=== PATIENT | female | born 1990 | race Caucasian/White ===

== ENCOUNTER 2017-04-10 15:21 | Emergency (ER) | payer MEDICAID ==
[~2017-04-10] VITALS: Ht 165.1 cm; Wt 92.0 kg
[~2017-04-10 15:21] MED LIST: PREN29TA PO
[2017-04-10 15:29] VITALS: BP 131/68; PULSE 73; RESP 20; TEMP 98.4
[2017-04-10 15:33] VITALS: BP 131/68; PULSE 74; RESP 20; TEMP 98.4; O2SAT 100
--- NOTE | 2017-04-10 15:40 | PD ---
HPI Chief Complaint: GI Complaint Time Seen by Provider: 15:35 Travel History International Travel<30 days: No Contact w/Intl Traveler<30days: No Traveled to known affect area: No History of Present Illness HPI PATIENT C/O ABD PAIN, SEEN AT [place] [facility] AND TRANSFERRED DUE TO ULTRASOUND NEED. PATIENT IS ABOUT 6 WEEKS GESTATION AND COMES IN C/O UPPER ABD PAIN, PRESSURE, NONRAD, MOSTLY EPIG , DENIES N/V/D/VAG BLEED/....NO AGGRAVATING/ ALLEVIATING FACTORS. PFSH Past Medical History Medical History: Denies Significant Hx Diminished Hearing: No Tetanus Vaccination: Unknown Influenza Vaccination: No ?: LMP: 03/01/17 : 3 Para: 1 Miscarriage: 1 Past Surgical History Section: Yes Tonsillectomy: Yes (T&A) Social History Alcohol Use: No Tobacco Use: No Substance Use: No Allergies-Medications (Allergen,Severity, Reaction): Coded Allergies: No Known Allergies (Verified Allergy, Unknown, 04/10/17) Reported Meds & Prescriptions Reported Meds & Active Scripts Active Reported Plus Iron 29-1 mg ( Vit-Iron Carbonyl) 29 Mg Iron-1 Mg Tab 1 Tab PO DAILY Review of Systems Except as stated in HPI: all other systems reviewed are Neg General / Constitutional: No: Fever Eyes: No: Visual changes HENT: No: Headaches Cardiovascular: No: Chest Pain or Discomfort Respiratory: No: Shortness of Breath Gastrointestinal: Positive: Abdominal Pain Genitourinary: No: Dysuria Musculoskeletal: No: Pain Skin: No Rash Neurologic: No: Weakness Psychiatric: No: Depression Endocrine: No: Polydipsia Hematologic/Lymphatic: No: Easy Bruising Physical Exam Narrative GENERAL: SKIN: Warm and dry. HEAD: Atraumatic. Normocephalic. EYES: Pupils equal and round. No scleral icterus. No injection or drainage. ENT: No nasal bleeding or discharge. Mucous membranes pink and moist. NECK: Trachea midline. No JVD. CARDIOVASCULAR: Regular rate and rhythm. RESPIRATORY: No accessory muscle use. Clear to auscultation. Breath sounds equal bilaterally. GASTROINTESTINAL: Abdomen soft, non-tender, nondistended. MUSCULOSKELETAL: Extremities without clubbing, cyanosis, or edema. No obvious deformities. NEUROLOGICAL: Awake and alert. No obvious cranial nerve deficits. Motor grossly within normal limits. Five out of 5 muscle strength in the arms and legs. Normal speech. PSYCHIATRIC: Appropriate mood and affect; insight and judgment normal. Data Data Last Documented VS Vital Signs Date Time Temp Pulse Resp B/P (MAP) Pulse Ox O2 Delivery O2 Flow Rate FiO2 04/10/17 15:33 98.4 74 20 131/68 (89) 100 Room Air Orders Orders Us Abdomen Gallbladder (04/10/17 ) Us Pelvis (Ques Pr/Ect)W Trans (04/10/17 15:35) MDM Medical Decision Making Medical Screen Exam Complete: Yes Emergency Medical Condition: Yes Medical Record Reviewed: Yes Differential Diagnosis ECTOPIC V EARLY PREG V BILIARY COLIC V GALLSTONES V PANCREATITIS Narrative Course ON EVALUATION, ULTRASOUND RUQ IS NL AND PELVIC SHOWS IUP WITH FHT 92 Diagnosis Primary Impression: UTI in Qualified Codes: O23.41 - Unspecified infection of urinary tract in , first trimester Patient Instructions: General Instructions, Urinary Tract Infection in Women ( ED) Scripts Nitrofurantoin Monohydrate Macrocrystals (Macrobid) 100 Mg Capsule 100 MG PO BID for Infection, #10 CAP 0 Refills Prov: Chay Dennison MD 04/10/17 Disposition: 01 DISCHARGE HOME Condition: Stable Chay Dennison MD Apr 10, 2017 15:40
--- NOTE | 2017-04-10 16:52 | RADRPT ---
EXAM DATE/TIME: 04/10/2017 15:47 [facility] COMPARISON: No previous studies available for comparison. INDICATIONS : Right upper quadrant pain. MEDICAL HISTORY : . Right upper quadrant pain. SURGICAL HISTORY : Tonsillectomy. section. ENCOUNTER: Initial ACUITY: 1 day PAIN SCORE: 4/10 LOCATION: Right upper quadrant MEASUREMENTS: LIVER: 15.4 cm length COMMON DUCT: 4 mm RIGHT KIDNEY: 11.3 x 4.2 x 4.7 cm FINDINGS: LIVER: Normal echotexture without focal lesion or ductal dilatation. COMMON DUCT: No intraluminal mass or stone visualized. GALLBLADDER: Contains no stones, demonstrates no wall thickening or pericholecystic fluid. PANCREAS: The visualized portions are within normal limits. RIGHT KIDNEY: No evidence of hydronephrosis, stone, or mass. CONCLUSION: Normal right upper quadrant ultrasound. Georgi Tomlinson MD on April 10, 2017 at 16:50 Board Certified Radiologist. This report was verified electronically.
--- NOTE | 2017-04-10 16:57 | RADRPT ---
EXAM DATE/TIME: 04/10/2017 15:59 [facility] COMPARISON: No previous studies available for comparison. INDICATIONS : Ectopic. LAB(S): [facility] MEDICAL HISTORY : . Right upper quadrant pain. SURGICAL HISTORY : Tonsillectomy. section. ENCOUNTER: Initial ACUITY: 6 weeks PAIN SCORE: 0/10 LOCATION: Bilateral pelvis MEASUREMENTS: UTERUS: 9.7 x 6.9 x 5.5 cm ENDOMETRIAL STRIPE: 13 mm RIGHT OVARY: 2.9 x 3.0 x 2.3 cm LEFT OVARY: 1.8 x 1.4 x 1.7 cm FREE FLUID: No CROWN RUMP LENGTH: 0.4 cm = 6 WKS 1 DAYS FHR: 92 BPM FINDINGS: UTERUS: The myometrium has homogeneous echotexture without mass. There is a single intrauterine gestational sac measuring 1.6 x 1.9 1.0 cm. Yolk sac is identified. What is thought to represent the embryo measu res 0.4 cm giving estimated age of 6 weeks and one days. M-mode Doppler was utilized. Hypoechoic mate rial adjacent to the gestational sac measures 1.6 x 1.3 x 0.6 cm. RIGHT OVARY: There is likely a corpus luteal cyst in the right ovary measuring 16 mm. LEFT OVARY: Ovary contains no mass or significant cystic lesion. MISCELLANEOUS: No free fluid. CONCLUSION: 1. There is a single intrauterine with estimated age of 6 weeks and one days. heart r ate of 92 was documented. Suggest imaging followup and clinical followup, as needed to document joshua l progression of . 2. Suspect small subchorionic hemorrhage measuring up to 1.5 cm. Georgi Tomlinson MD on April 10, 2017 at 16:51 Board Certified Radiologist. This report was verified electronically.
[2017-04-10] MEDS ORDERED: MACR100C2 PO (18:22)
== END 2017-04-10 18:30 | disposition home or self-care (01) ==
LOC: NEPE 15:21
DX: O23.41 Unspecified infection of urinary tract in pregnancy, first trimester (principal); Z34.91 Encounter for supervision of normal pregnancy, unspecified, first trimester
CPT/HCPCS: 76700; 76705; 76817; 80053; 81001; 83690; 84702; 85025; 87086; 99285